=== PATIENT | male | born 1995 ===

== ENCOUNTER 2022-09-02 16:59 | Inpatient (IN) | payer SELFPAY ==
[~2022-09-02] VITALS: Ht 162.6 cm; Wt 73.3 kg
[2022-09-02 17:57] LABS: BASOPHILS % (AUTO) 0.3 % (0.0-2.0); EOSINOPHILS % (AUTO) 3.5 % (1.0-6.0); HEMATOCRIT 37.3 % (41-53); HEMOGLOBIN 12.1 g/dL (13.5-17.5); LYMPHOCYTES # (AUTO) 2.2 K/uL (1.0-4.8); MEAN CORPUSCULAR HEMOGLOBIN 29.4 pg (26.0-34.0); MEAN CORPUSCULAR HGB CONC 32.6 G/dL (31.0-37.0); MEAN CORPUSCULAR VOLUME 90 fL (80-100); MONOCYTES # (AUTO) 1.7 K/uL (0.1-1.0); MONOCYTES % (AUTO) 14.1 % (2.0-9.0); NEUTROPHILS # (AUTO) 7.6 K/uL (1.8-7.7); NEUTROPHILS % (AUTO) 64.1 % (40.0-70.0); PLATELET COUNT (AUTO) 353 K/uL (150-450); RED BLOOD CELL COUNT(AUTO) 4.13 MIL/uL (4.50-5.90); RED CELL DISTRIBUTION WIDTH 14.8 % (11.5-14.5)
[2022-09-02 18:06] LABS: ANION GAP 9 mmol/L (8-16); CALCIUM, TOTAL 8.7 mg/dL (8.8-10.5); CARBON DIOXIDE 29 mmol/L (22-29); CHLORIDE 99 mmol/L (98-107); GLOMERULAR FILTR. RATE CALC > 60 mL/min (>60); GLUCOSE,RANDOM 80 mg/dL (70-110); POTASSIUM 3.7 mmol/L (3.5-5.1); SODIUM SERUM 137 mmol/L (136-145); UREA NITROGEN, BLOOD 8 mg/dL (7-18)
[2022-09-02 18:13] LABS: APPEARANCE,URINE CLEAR (CLEAR); BILIRUBIN,URINE NEGATIVE (NEGATIVE); GLUCOSE, URINE (UA) NEGATIVE (NEGATIVE); KETONES,URINE TRACE mg/dL (NEGATIVE); LEUKOCYTE ESTERASE ,URINE NEGATIVE (NEGATIVE); NITRATE,URINE NEGATIVE (NEGATIVE); OCCULT BLOOD,URINE SMALL (NEGATIVE); PH,URINE 6.5 (5.0-8.0); PROTEIN,URINE NEGATIVE (NEGATIVE); SPECIFIC GRAVITIY, URINE 1.004 (1.003-1.030); UROBILINOGEN,URINE <=1.0 mg/dL (<=1.0)
[2022-09-02 18:15] LABS: LACTIC ACID 3.4 mmol/L (0.4-2.0)
[2022-09-02 18:19] LABS: AMPHET/METH SCREEN,URINE POSITIVE (NEGATIVE); BARBITURATE SCREEN, URINE NEGATIVE (NEGATIVE); BENZODIAZEPINES SCREEN,URINE NEGATIVE (NEGATIVE); CANNABINOID SCREEN,URINE NEGATIVE (NEGATIVE); COCAINE SCREEN,URINE NEGATIVE (NEGATIVE); METHADONE SCREEN, URINE NEGATIVE (NEGATIVE); OPIATE SCREEN,URINE NEGATIVE (NEGATIVE)
[2022-09-02 18:24] LABS: PHENCYCLIDINE SCREEN,URINE NEGATIVE (NEGATIVE)
[2022-09-02 18:26] LABS: BACTERIA,URINE None Seen /HPF (None Seen); SQUAMOUS EPITHELIAL CELL,UR Rare /LPF (None Seen); WBC,URINE 0-2 /HPF (0-5)
[2022-09-02 18:31] LABS: ALANINE AMINOTRANSFERASE 86 U/L (12-78); ALBUMIN 3.3 g/dL (3.4-5.0); ALKALINE PHOSPHATASE 94 U/L (46-116); ASPARTATE AMINOTRANSFERASE 67 U/L (15-37); BILIRUBIN,TOTAL 0.3 mg/dL (0.1-1.0); CREATINE KINASE, TOTAL ONLY 975 U/L (39-308); LIPASE 68 U/L (73-393); TOTAL PROTEIN, SERUM 7.7 g/dL (6.4-8.2)
[2022-09-02] MEDS ORDERED: LORazepam 2 MG/ML VIAL IM ONE (20:00)
[2022-09-02] MEDS ORDERED: HALOPERIDOL LACTATE 5 MG/ML VIAL IM ONE (20:00)
[2022-09-02] MEDS ORDERED: DiphenhydrAMINE HCL 50 MG/ML VIAL IM ONE (20:00)
[2022-09-02] MEDS ORDERED: PERTUSS(ACELL),DIPH,TET VAC/PF 0.5 ML SYRINGE IM. ONE (20:30)
[2022-09-02] MEDS ORDERED: BACITRACIN 0.9 GM PACKET OINTMENT TP ONE (20:30)
[2022-09-03 00:36] LABS: COVID AG,FIA SOURCE NASAL SWAB
[2022-09-03] MEDS ORDERED: ZOLPIDEM TARTRATE 10 MG TABLET PO PRN (05:30)
[2022-09-03 09:50] VITALS: BP 126/80
[2022-09-03] MEDS ORDERED: NICOTINE 14 MG/24 HOUR PATCH TD PRN ×2 (12:45→16:00)
[2022-09-03] MEDS ORDERED: LOPERAMIDE HCL 2 MG CAPSULE PO PRN (16:00)
[2022-09-03] MEDS ORDERED: MAGNESIUM HYDROXIDE SUSPENSION 30 ML UDCUP PO PRN (16:00)
[2022-09-03] MEDS ORDERED: CloNIDine HCL 0.1 MG TABLET PO PRN (16:00)
[2022-09-03] MEDS ORDERED: PETROLATUM,WHITE 28 GM JELLY TP PRN (16:00)
[2022-09-03] MEDS ORDERED: GuaiFENesin/D-METHORPHAN [SUGAR-FREE] 200-20MG/10 ML SYRUP UDCUP PO PRN (16:00)
[2022-09-03] MEDS ORDERED: ACETAMINOPHEN 325 MG TABLET PO PRN (16:00)
[2022-09-03] MEDS ORDERED: ALBUTEROL SULFATE HFA 90 MCG/PUFF 8 GM INHALER IH PRN (16:00)
[2022-09-03] MEDS ORDERED: ONDANSETRON HCL 4 MG TABLET PO PRN (16:00)
[2022-09-03] MEDS ORDERED: MAG HYDROX/AL HYDROX/SIMETH ES 30 ML SUSPENSION UDCUP PO PRN (16:00)
[2022-09-03] MEDS ORDERED: IBUPROFEN 400 MG TABLET PO PRN (16:00)
[2022-09-03] MEDS ORDERED: DOCUSATE SODIUM 100 MG CAPSULE PO PRN (16:00)
[2022-09-03 16:09] VITALS: BP 134/90
[2022-09-04 08:22] VITALS: BP 128/80
[2022-09-04] MEDS: HALOPERIDOL 5 MG TABLET PO PRN (10:33)
[2022-09-04] MEDS: LORazepam 2 MG TABLET PO PRN (10:34)
[2022-09-04 16:17] VITALS: BP 120/85
[2022-09-04] MEDS: OLANZapine 5 MG TABLET PO SCH (17:15)
[2022-09-05] MEDS: OLANZapine 5 MG TABLET PO SCH ×2 (08:10→16:24)
[2022-09-05 08:54] VITALS: BP 105/60
[2022-09-05] MEDS: LORazepam 2 MG TABLET PO PRN ×2 (12:10→16:24)
[2022-09-05] MEDS: HALOPERIDOL 5 MG TABLET PO PRN (12:10)
[2022-09-06 08:09] VITALS: BP 120/77
[2022-09-06] MEDS: OLANZapine 5 MG TABLET PO SCH ×2 (09:30→16:11)
[2022-09-06 16:05] VITALS: BP 115/74
[2022-09-06] MEDS: LORazepam 2 MG TABLET PO PRN (16:05)
[2022-09-07 08:45] VITALS: BP 137/85
[2022-09-07] MEDS: OLANZapine 5 MG TABLET PO SCH ×2 (08:59→16:44)
[2022-09-07] MEDS: LORazepam 2 MG TABLET PO PRN ×2 (08:59→16:44)
[2022-09-07 16:17] VITALS: BP 112/79
[2022-09-08] MEDS: LORazepam 2 MG TABLET PO PRN (08:26)
[2022-09-08] MEDS: OLANZapine 5 MG TABLET PO SCH ×2 (08:26→17:26)
[2022-09-08 09:00] VITALS: BP 132/79
[2022-09-08] MEDS ORDERED: DiphenhydrAMINE HCL 50 MG/ML VIAL IM ONE (15:45)
[2022-09-08] MEDS ORDERED: HALOPERIDOL LACTATE 5 MG/ML VIAL IM ONE (15:45)
[2022-09-08] MEDS ORDERED: LORazepam 2 MG/ML VIAL IM ONE (15:45)
[2022-09-08] MEDS ORDERED: HALOPERIDOL LACTATE 5 MG/ML VIAL ONE (15:47)
[2022-09-08] MEDS ORDERED: DiphenhydrAMINE HCL 50 MG/ML VIAL ONE (15:47)
[2022-09-08] MEDS ORDERED: LORazepam 2 MG/ML VIAL ONE (15:47)
[2022-09-09 04:34] LABS: COVID AG,FIA SOURCE NASAL SWAB
[2022-09-09] MEDS: HALOPERIDOL 5 MG TABLET PO PRN (05:57)
[2022-09-09] MEDS: LORazepam 2 MG TABLET PO PRN ×2 (05:58→23:04)
[2022-09-09 08:00] VITALS: BP 131/72
[2022-09-09] MEDS: OLANZapine 5 MG TABLET PO SCH ×2 (08:55→17:01)
[2022-09-09] MEDS: AQUAPHOR OINTMENT 50 GM TUBE TP SCH (09:00)
[2022-09-09] MEDS ORDERED: HALOPERIDOL LACTATE 5 MG/ML VIAL IM ONE (15:00)
[2022-09-09] MEDS ORDERED: DiphenhydrAMINE HCL 50 MG/ML VIAL ONE (15:00)
[2022-09-09] MEDS ORDERED: HALOPERIDOL LACTATE 5 MG/ML VIAL ONE (15:00)
[2022-09-09] MEDS ORDERED: LORazepam 2 MG/ML VIAL IM ONE (15:00)
[2022-09-09] MEDS ORDERED: DiphenhydrAMINE HCL 50 MG/ML VIAL IM ONE (15:00)
[2022-09-09] MEDS ORDERED: LORazepam 2 MG/ML VIAL ONE (15:00)
[2022-09-10 08:24] VITALS: BP 130/87
[2022-09-10] MEDS: OLANZapine 5 MG TABLET PO SCH (08:37)
[2022-09-10] MEDS: AQUAPHOR OINTMENT 50 GM TUBE TP SCH (08:37)
[2022-09-10] MEDS: LORazepam 2 MG TABLET PO PRN (08:37)
[2022-09-10] MEDS ORDERED: OLAN5TAB52 PO (10:45)
[2022-09-10] MEDS ORDERED: AQUAOINT TP (11:21)
== END 2022-09-10 12:00 | disposition home or self-care (01) | DRG 885 ==
LOC: EMS 17:04 → 3EC 09-03 05:52
PROVIDERS: ADMIT Psychiatry & Neurology Child & Adolescent Psychiatry; ATTEND Psychiatry & Neurology Child & Adolescent Psychiatry
DX: F29 Unspecified psychosis not due to a substance or known physiological condition (principal); M62.82 Rhabdomyolysis; D72.829 Elevated white blood cell count, unspecified; D64.9 Anemia, unspecified; R74.01 Elevation of levels of liver transaminase levels; Z20.822 Contact with and (suspected) exposure to COVID-19
CPT/HCPCS: 80053; 80307; 81001; 82550; 83605; 83690; 85025; 90715; 99291; G0480; J1200; J1630; J2060